=== PATIENT | male | born 1970 | race Caucasian/White ===

== ENCOUNTER 2019-02-16 19:35 | Emergency (ER) | payer OTHER ==
[~2019-02-16] VITALS: Ht 185.4 cm; Wt 132.4 kg
[~2019-02-16 19:35] MED LIST: CLINDAMYCIN HC300 MG PO; COLACE100 MG PO; LAC PO; NOR10T PO
[2019-02-16 19:42] VITALS: Ht 185.4 cm; Wt 132.4 kg
[2019-02-16 20:49] VITALS: BP 150/95
== END 2019-02-16 20:49 | disposition home or self-care (01) ==
LOC: ED 19:35
DX: R22.0 Localized swelling, mass and lump, head (principal); Z13.89 Encounter for screening for other disorder